=== PATIENT | female | born 1945 | race Caucasian/White ===

== ENCOUNTER 2016-10-23 11:19 | Outpatient (CLI) | payer MEDICARE, MEDICAID ==
[~2016-10-23 11:19] MED LIST: IRON SUCROSE COMPLEX 300 MG in NORMAL SALINE 250 ML IV PRN
[2016-10-23 12:06] VITALS: BP 126/106
== END 2016-10-23 14:42 | disposition home or self-care (01) ==
LOC: II 11:19 → 5TH 12:32 → II 14:42
PROVIDERS: ATTEND Internal Medicine Nephrology
PROC: 3E033GC Introduction of Other Therapeutic Substance into Peripheral Vein, Percutaneous Approach (ICD-10-PCS; principal; 2016-10-23)
DX: D50.9 Iron deficiency anemia, unspecified (principal); N18.9 Chronic kidney disease, unspecified; D63.1 Anemia in chronic kidney disease
CPT/HCPCS: 96365; 96366; J1756; J7050

== ENCOUNTER 2016-10-30 10:02 | Outpatient (CLI) | payer MEDICARE, MEDICAID ==
[2016-10-30] MEDS ORDERED: IRON SUCROSE COMPLEX 300 MG in NORMAL SALINE 250 ML IV PRN (10:25)
[2016-10-30 10:32] VITALS: BP 153/60
== END 2016-10-30 12:16 | disposition home or self-care (01) ==
LOC: II 10:02 → 5TH 10:15 → II 12:16
PROVIDERS: ATTEND Internal Medicine Nephrology
PROC: 3E033GC Introduction of Other Therapeutic Substance into Peripheral Vein, Percutaneous Approach (ICD-10-PCS; principal; 2016-10-30)
DX: N18.9 Chronic kidney disease, unspecified (principal); D63.1 Anemia in chronic kidney disease; D50.9 Iron deficiency anemia, unspecified
CPT/HCPCS: 96365; 96366; J1756; J7050

== ENCOUNTER 2017-01-15 09:04 | Outpatient (CLI) | payer MEDICARE, MEDICAID ==
[2017-01-15 10:12] VITALS: BP 154/77
== END 2017-01-15 12:06 | disposition home or self-care (01) ==
LOC: II 09:04 → 5TH 09:08 → II 12:06
PROVIDERS: ATTEND Internal Medicine Nephrology
PROC: 3E033GC Introduction of Other Therapeutic Substance into Peripheral Vein, Percutaneous Approach (ICD-10-PCS; principal; 2017-01-15)
DX: D56.9 Thalassemia, unspecified (principal); D63.1 Anemia in chronic kidney disease; N18.9 Chronic kidney disease, unspecified
CPT/HCPCS: 96365; 96366; J1756; J7050; 96367

== ENCOUNTER 2017-01-29 09:05 | Outpatient (CLI) | payer MEDICARE, MEDICAID ==
[2017-01-29 10:44] VITALS: BP 147/72
== END 2017-01-29 10:55 | disposition home or self-care (01) ==
LOC: II 09:05 → 5TH 09:07 → II 10:55
PROVIDERS: ATTEND Internal Medicine Nephrology
PROC: 3E033GC Introduction of Other Therapeutic Substance into Peripheral Vein, Percutaneous Approach (ICD-10-PCS; principal; 2017-01-29)
DX: D50.9 Iron deficiency anemia, unspecified (principal); N18.9 Chronic kidney disease, unspecified; D63.1 Anemia in chronic kidney disease
CPT/HCPCS: 96365; 96366; J1756; J7050

== ENCOUNTER 2017-03-12 09:13 | Outpatient (CLI) | payer MEDICARE, MEDICAID ==
[2017-03-12] MEDS ORDERED: IRON SUCROSE COMPLEX 300 MG in NORMAL SALINE 250 ML IV PRN (09:46)
[2017-03-12 10:37] VITALS: BP 152/94
== END 2017-03-12 11:54 | disposition home or self-care (01) ==
LOC: II 09:13 → 5TH 09:26 → II 11:54
PROVIDERS: ATTEND Internal Medicine Nephrology
PROC: 3E033GC Introduction of Other Therapeutic Substance into Peripheral Vein, Percutaneous Approach (ICD-10-PCS; principal; 2017-03-12)
DX: N18.9 Chronic kidney disease, unspecified (principal); D63.1 Anemia in chronic kidney disease; D50.9 Iron deficiency anemia, unspecified
CPT/HCPCS: 96365; 96366; J1756; J7050

== ENCOUNTER 2017-09-03 02:09 | Emergency (ER) | payer MEDICARE, MEDICAID ==
--- NOTE | 2017-09-03 04:07 | RADIOLOGY REPORT (SQ) ---
EXAM DESCRIPTION: RIBS LEFT W/PA CHEST CLINICAL HISTORY: 72 years, Female, fall COMPARISON: None. NUMBER OF VIEWS: 4. TECHNIQUE: AP and obliques. LIMITATIONS: None. FINDINGS: Moderate lung volume, clear parenchyma, normal cardiac silhouette size, atherosclerosis, and mild osteoarthritis. No evidence of significant displaced rib fracture. No pneumothorax. IMPRESSION: No acute cardiopulmonary findings. No displaced rib fracture. No pneumothorax. 2010 [employer]- All Rights Reserved
--- NOTE | 2017-09-03 06:03 | ER Document Report ---
ED General - General Chief Complaint: Fall Stated Complaint: FALL,RIB PAIN Notes: 72-year-old female presents with a fall getting on her bed approximately 5 hours ago. She was going take a nap and she slipped with her foot tripping on something. She hit her left back/flank on a piece of furniture. No head impact , loss of consciousness. Denies headache neck pain numbness or tingling. No shortness of breath or abdominal pain or nausea or vomiting. No blood thinners. Has pain and bruising at the site of impact only. Her granddaughter says that she was confused at the time but is now back to normal mental status. No urinary symptoms. History of fall 1 week ago. TRAVEL OUTSIDE OF THE [place] IN LAST 30 DAYS: No - Related Data Allergies/Adverse Reactions: allopurinol [Allopurinol] Allergy (Intermediate, Verified 12/23/13 03:17) rash atorvastatin calcium [From Lipitor] Adverse Reaction (Intermediate, Verified 03:17) elevated enzymes codeine [Codeine] Adverse Reaction (Mild, Verified 12/23/13 03:17) Nausea Past Medical History - Social History Smoking Status: Never Smoker Family History: Other - KIDNEY DIS. Patient has suicidal ideation: No Patient has homicidal ideation: No - Past Medical History Cardiac Medical History: Reports: Hx Hypertension Denies: Hx Coronary Artery Disease, Hx Heart Attack Pulmonary Medical History: Reports: Hx Pneumonia Denies: Hx Asthma, Hx Bronchitis, Hx COPD Neurological Medical History: Denies: Hx Cerebrovascular Accident, Hx Seizures Endocrine Medical History: Reports: Hx Diabetes Mellitus Type 2 Renal/ Medical History: Reports: Hx Kidney Stones. Denies: Hx Peritoneal Dialysis Musculoskeltal Medical History: Denies Hx Arthritis Past Surgical History: Reports: Hx Appendectomy, Hx Gynecologic Surgery - cyst removed from right ovary, Hx Kidney (Renal Surgery) - stone removed - Immunizations Hx Diphtheria, Pertussis, Tetanus Vaccination: Yes Hx Pneumococcal Vaccination: 07/31/14 Review of Systems - Review of Systems Notes: REVIEW OF SYSTEMS GEN: Denies fever, chills, weight loss ENT: Denies sore throat, nasal discharge, ear pain EYES: Denies blurry vision, eye pain, discharge CV: Denies chest pain, palpitations, edema RESP: Denies cough, shortness of breath, wheezing GI: Denies abdominal pain, nausea, vomiting, diarrhea flank pain on the left. MSK: Denies joint pain/swelling, edema, SKIN: Denies rash, skin lesions LYMPH: Denies swollen glands/lymph nodes NEURO: Denies headache, focal weakness or numbness, dizziness. Confusion resolved per granddaughter. PSYCH: Denies depression, suicidal or homicidal ideation PHYSICAL EXAMINATION General: No acute distress, well-nourished Head: Atraumatic, normocephalic ENT: Mouth normal, oropharynx moist, no exudates or tonsillar enlargement Eyes: Conjunctiva normal, pupils equal, lids normal Neck: No JVD, supple, no guarding CVS: Normal rate, regular rhythm, no murmurs Resp: No resp distress, equal and normal breath sounds bilaterally. No deformities or chest tenderness. GI: Nondistended, soft, no tenderness to palpation, no rebound or guarding Ext: No deformities, no edema, normal range of motion in upper and lower ext Back: No CVA or midline TTP. No step-offs. 12 x 12 cm contusion to the left paraspinous area/flank with minimal tenderness. Skin: No rash, warm Lymphatic: No lymphadeopathy noted Neuro: Awake, alert. Face symmetric. GCS 15. Physical Exam - Vital signs Vitals: Temp Pulse Resp BP Pulse Ox 98.1 F 65 18 173/95 H 98 09/03/17 02:13 09/03/17 02:13 09/03/17 02:13 09/03/17 02:13 09/03/17 02:13 Course - Re-evaluation Re-evalutation: 09/03/17 06:35 Patient presents with contusion to back flank after fall about 5 hours ago. Her vitals are normal she has no remote tenderness of the abdomen and back which I think makes solid organ or retroperitoneal injury less likely. No evidence for spinal trauma. She is no longer confused and has no signs of head trauma so I think head and neck imaging is also not necessary today. Rib x-ray which was ordered before my arrival shows no fractures. Clinically she has no significant pulmonary trauma either. I think she is stable for discharge home with conservative management. I did talk to the daughter about fall prevention in the home and follow-up with primary care doctor. I have discussed with the patient there likely diagnosis, aftercare plan, follow-up plans and my usual and customary return precautions. They verbalized understanding of this. - Vital Signs Vital signs: Temp Pulse Resp BP Pulse Ox 98.1 F 65 18 173/95 H 98 09/03/17 02:13 09/03/17 02:13 09/03/17 02:13 09/03/17 02:13 09/03/17 02:13 - Diagnostic Test Radiology reviewed: Image reviewed, Reports reviewed Discharge - Discharge Clinical Impression: Fall from standing Qualifiers: Encounter type: initial encounter Qualified Code(s): W19.XXXA - Unspecified fall, initial encounter Disposition: HOME, SELF-CARE Instructions: Contusion ([facility]), Rib Contusion ([facility]) Additional Instructions: Please touch your regular doctor within the next week about reducing falls in the home. Please return to the emergency room if he develops shortness of breath worsening pain nausea vomiting or confusion.
[2017-09-03] MEDS ORDERED: IBUPROFEN 600 MG TABLET PO ONE (06:16)
[2017-09-03 07:12] VITALS: BP 169/84
== END 2017-09-03 06:20 | disposition home or self-care (01) ==
LOC: ER 02:09
DX: S30.1XXA Contusion of abdominal wall, initial encounter (principal); R07.81 Pleurodynia; W01.0XXA Fall on same level from slipping, tripping and stumbling without subsequent striking against object, initial encounter; Y93.89 Activity, other specified; Z88.8 Allergy status to other drugs, medicaments and biological substances; I10 Essential (primary) hypertension; E11.9 Type 2 diabetes mellitus without complications
CPT/HCPCS: 99283; 71101; A9270

== ENCOUNTER 2018-01-07 08:54 | Outpatient (CLI) | payer MEDICARE, MEDICAID ==
[2018-01-07] MEDS ORDERED: IRON SUCROSE COMPLEX 300 MG in NORMAL SALINE 250 ML IV PRN (09:23)
[2018-01-07 09:37] VITALS: BP 189/82
== END 2018-01-07 11:52 | disposition home or self-care (01) ==
LOC: II 08:54 → 5TH 09:08 → II 11:52
PROVIDERS: ATTEND Family Medicine
PROC: 3E033GC Introduction of Other Therapeutic Substance into Peripheral Vein, Percutaneous Approach (ICD-10-PCS; principal; 2018-01-07)
DX: D50.9 Iron deficiency anemia, unspecified (principal); N18.9 Chronic kidney disease, unspecified; D63.1 Anemia in chronic kidney disease
CPT/HCPCS: 96365; J1756; J7050

== ENCOUNTER 2018-04-15 08:59 | Outpatient (CLI) | payer MEDICARE, MEDICAID ==
[2018-04-15 10:57] VITALS: BP 157/99
== END 2018-04-15 12:40 | disposition home or self-care (01) ==
LOC: II 08:59 → 5TH 09:37 → II 12:40
PROVIDERS: ATTEND Family Medicine
PROC: 3E033GC Introduction of Other Therapeutic Substance into Peripheral Vein, Percutaneous Approach (ICD-10-PCS; principal; 2018-04-15)
DX: D50.9 Iron deficiency anemia, unspecified (principal); N18.9 Chronic kidney disease, unspecified; D63.1 Anemia in chronic kidney disease
CPT/HCPCS: 96367; J1756; J7050; 96365; 96366

== ENCOUNTER 2018-06-03 09:00 | Outpatient (CLI) | payer MEDICARE, MEDICAID ==
[2018-06-03 09:36] VITALS: BP 177/82
== END 2018-06-03 12:39 | disposition home or self-care (01) ==
LOC: II 09:00 → 5TH 09:05 → II 12:39
PROVIDERS: ATTEND Internal Medicine Cardiovascular Disease
PROC: 3E033GC Introduction of Other Therapeutic Substance into Peripheral Vein, Percutaneous Approach (ICD-10-PCS; principal; 2018-06-03)
DX: D50.9 Iron deficiency anemia, unspecified (principal); D63.1 Anemia in chronic kidney disease
CPT/HCPCS: 96365; 96366; J1756; J7050

== ENCOUNTER 2018-08-12 08:47 | Outpatient (CLI) | payer MEDICARE, MEDICAID ==
[2018-08-12 11:13] VITALS: BP 158/84
== END 2018-08-12 11:18 | disposition home or self-care (01) ==
LOC: II 08:47 → 5TH 08:58 → II 11:18
PROVIDERS: ATTEND Internal Medicine Nephrology
PROC: 3E033GC Introduction of Other Therapeutic Substance into Peripheral Vein, Percutaneous Approach (ICD-10-PCS; principal; 2018-08-12)
DX: D50.9 Iron deficiency anemia, unspecified (principal); D63.1 Anemia in chronic kidney disease
CPT/HCPCS: 96365; 96366; J1756; J7050

== ENCOUNTER 2018-09-10 18:23 | Emergency (ER) | payer MEDICARE, MEDICAID ==
--- NOTE | 2018-09-10 20:15 | ER Document Report ---
ED Medical Screen (RME) - General Chief Complaint: Breathing Difficulty Stated Complaint: DYSPNEA Time Seen by Provider: 09/10/18 20:07 Notes: 73-year-old female comes emergency department for chief complaint of worsening difficulty breathing for the past 4 days, she does report intermittently productive cough, she does report pain along her ribs on both sides. Denies fever. Shortness of breath became worse today, came by EMS, given DuoNeb and placed on oxygen, given Solu-Medrol. States on oxygen she feels much improved. Denies history of smoking, COPD, asthma. Past medical history includes chronic kidney disease, TIA, and she states she is taking a diuretic TRAVEL OUTSIDE OF THE [place] IN LAST 30 DAYS: No - Related Data Allergies/Adverse Reactions: allopurinol [Allopurinol] Allergy (Intermediate, Verified 12/23/13 03:17) rash atorvastatin calcium [From Lipitor] Adverse Reaction (Intermediate, Verified 03:17) elevated enzymes codeine [Codeine] Adverse Reaction (Mild, Verified 12/23/13 03:17) Nausea Past Medical History - Past Medical History Cardiac Medical History: Reports: Hx Hypertension Denies: Hx Coronary Artery Disease, Hx Heart Attack Pulmonary Medical History: Reports: Hx Pneumonia Denies: Hx Asthma, Hx Bronchitis, Hx COPD Neurological Medical History: Denies: Hx Cerebrovascular Accident, Hx Seizures Endocrine Medical History: Reports: Hx Diabetes Mellitus Type 2 Renal/ Medical History: Reports: Hx Kidney Stones. Denies: Hx Peritoneal Dialysis Musculoskeltal Medical History: Denies Hx Arthritis Past Surgical History: Reports: Hx Appendectomy, Hx Gynecologic Surgery - cyst removed from right ovary, Hx Kidney (Renal Surgery) - stone removed - Immunizations Hx Diphtheria, Pertussis, Tetanus Vaccination: Yes Physical Exam - Vital signs Vitals: Temp Pulse Resp BP Pulse Ox 98.5 F 60 20 189/82 H 96 09/10/18 18:51 09/10/18 18:51 09/10/18 18:51 09/10/18 18:51 09/10/18 18:51 - Respiratory Respiratory status: No respiratory distress. No: Respiratory distress, Tachypnea Breath sounds: Wheezing Course - Re-evaluation Re-evalutation: Patient is hypertensive but she does not have rails on exam, on exam she has expiratory wheezes, reports cough for 4 days, no fever. Workup pending. No respiratory distress in triage. No hypoxia at this time. I have greeted and performed a rapid initial assessment of this patient. A comprehensive ED assessment and evaluation of the patient, analysis of test results and completion of the medical decision making process will be conducted by additional ED providers. - Vital Signs Vital signs: Temp Pulse Resp BP Pulse Ox 98.5 F 60 20 189/82 H 96 09/10/18 18:51 09/10/18 18:51 09/10/18 18:51 09/10/18 18:51 09/10/18 18:51
[2018-09-10] MEDS ORDERED: IPRATROPIUM/ALBUTEROL 0.5-2.5 MG/3 ML AMPUL NEB ONE ×2 (20:21→22:37)
--- NOTE | 2018-09-10 20:41 | RADIOLOGY REPORT (SQ) ---
EXAM DESCRIPTION: CHEST SINGLE VIEW COMPLETED DATE/TIME: 09/10/2018 8:33 pm REASON FOR STUDY: shortness of breath COMPARISON: 12/22/2013. EXAM PARAMETERS: NUMBER OF VIEWS: One view. TECHNIQUE: Single frontal radiographic view of the chest acquired. RADIATION DOSE: NA LIMITATIONS: None. FINDINGS: LUNGS AND PLEURA: No opacities, masses or pneumothorax. No pleural effusion. MEDIASTINUM AND HILAR STRUCTURES: No masses. Contour normal. HEART AND VASCULAR STRUCTURES: Heart normal in size. Normal vasculature. BONES: No acute findings. HARDWARE: None in the chest. OTHER: No other significant finding. IMPRESSION: NO ACUTE RADIOGRAPHIC FINDING IN THE CHEST. TECHNICAL DOCUMENTATION: JOB ID: [id number] [employer]- All Rights Reserved Reading location - IP/workstation name: [email or web address]
--- NOTE | 2018-09-10 21:19 | EKG REPORT ---
SEVERITY:- ABNORMAL ECG - ATRIAL FIBRILLATION VENTRICULAR PREMATURE COMPLEX BORDERLINE LEFT AXIS DEVIATION BORDERLINE PROLONGED QT INTERVAL : Confirmed by: Kaitlin Bruce MD 10-Sep-2018 21:18:23
[2018-09-10 21:21] LABS: ABSOLUTE LYMPHOCYTES (AUTO) 0.5 10^3/uL (0.5-4.7); ABSOLUTE MONOCYTES (AUTO) 0.2 10^3/uL (0.1-1.4); ABSOLUTE NEUT (AUTO) 7.3 10^3/uL (1.7-8.2); BASOPHILS % (AUTO) 0.4 % (0-2); EOSINOPHILS % (AUTO) 0.6 % (0-6); HEMATOCRIT 25.3 % (36.0-47.0); HEMOGLOBIN 8.6 g/dL (12.0-15.5); LYMPHOCYTES % (AUTO) 6.5 % (13-45); MEAN CORPUSCULAR HEMOGLOBIN 34.4 pg (27.0-33.4); MEAN CORPUSCULAR HGB CONC 34.1 g/dL (32.0-36.0); MEAN CORPUSCULAR VOLUME 101 fl (80-97); MONOCYTES % (AUTO) 1.9 % (3-13); PLATELET COUNT 155 10^3/uL (150-450); RED BLOOD COUNT 2.51 10^6/uL (3.72-5.28); RED CELL DISTRIBUTION WIDTH 13.4 % (11.5-14.0); SEGMENTED NEUTROPHILS % (AUTO) 90.6 % (42-78); TOTAL CELLS COUNTED % (AUTO) 100 %; VENOUS BLOOD HCO3 23.9 mmol/L (20-32); VENOUS BLOOD PCO2 45.6 mmHg (35-63); VENOUS BLOOD PH 7.34 (7.30-7.42)
[2018-09-10 21:41] LABS: ALANINE AMINOTRANSFERASE 23 U/L (9-52); ALBUMIN 3.7 g/dL (3.5-5.0); ALKALINE PHOSPHATASE 76 U/L (38-126); ANION GAP 12 (5-19); ASPARTATE AMINO TRANSFERASE 23 U/L (14-36); BILIRUBIN,DIRECT 0.1 mg/dL (0.0-0.4); BILIRUBIN,TOTAL 0.3 mg/dL (0.2-1.3); BLOOD UREA NITROGEN 38 mg/dL (7-20); CALCIUM 9.4 mg/dL (8.4-10.2); CARBON DIOXIDE 23 mmol/L (22-30); CHLORIDE 112 mmol/L (98-107); GLUCOSE 155 mg/dL (75-110); POTASSIUM 4.8 mmol/L (3.6-5.0); SODIUM 146.5 mmol/L (137-145); TOTAL PROTEIN 6.6 g/dL (6.3-8.2)
--- NOTE | 2018-09-10 23:40 | ER Document Report ---
ED General - General Chief Complaint: Breathing Difficulty Stated Complaint: DIFFICULTY BREATHING Time Seen by Provider: 09/10/18 20:07 Notes: Very pleasant 73-year-old female with HTN and CKD brought in by EMS for shortness of breath that started approximately 4 days ago but became acutely worse this evening. She also has associated bilateral rib pain and a productive cough. She denies fever, endorses shortness of breath, denies headache, denies chest pain, denies nausea, denies vomiting. MS gave her Solu- Medrol 125 mg 1 time and 1 DuoNeb. In triage in the ED she received a second DuoNeb treatment. Patient has no history of asthma or airway disease. Patient has never smoked. TRAVEL OUTSIDE OF THE [place] IN LAST 30 DAYS: No - HPI Patient complains to provider of: shortness of breath - Related Data Allergies/Adverse Reactions: allopurinol [Allopurinol] Allergy (Intermediate, Verified 12/23/13 03:17) rash atorvastatin calcium [From Lipitor] Adverse Reaction (Intermediate, Verified 03:17) elevated enzymes codeine [Codeine] Adverse Reaction (Mild, Verified 12/23/13 03:17) Nausea Past Medical History - General Information source: Patient - Social History Smoking Status: Never Smoker Frequency of alcohol use: None Drug Abuse: None Family History: Other - KIDNEY DIS. Patient has suicidal ideation: No Patient has homicidal ideation: No - Past Medical History Cardiac Medical History: Reports: Hx Hypertension Denies: Hx Coronary Artery Disease, Hx Heart Attack Pulmonary Medical History: Reports: Hx Pneumonia Denies: Hx Asthma, Hx Bronchitis, Hx COPD Neurological Medical History: Denies: Hx Cerebrovascular Accident, Hx Seizures Endocrine Medical History: Reports: Hx Diabetes Mellitus Type 2 Renal/ Medical History: Reports: Hx End Stage Renal Disease - not on dialysis , Hx Kidney Stones. Denies: Hx Peritoneal Dialysis Musculoskeletal Medical History: Denies Hx Arthritis Past Surgical History: Reports: Hx Appendectomy, Hx Gynecologic Surgery - cyst removed from right ovary, Hx Hysterectomy, Hx Kidney (Renal Surgery) - stone removed - Immunizations Hx Diphtheria, Pertussis, Tetanus Vaccination: Yes Hx Pneumococcal Vaccination: 07/31/14 Review of Systems - Review of Systems Constitutional: See HPI EENT: See HPI Cardiovascular: See HPI Respiratory: See HPI Gastrointestinal: See HPI Genitourinary: No symptoms reported Female Genitourinary: No symptoms reported Musculoskeletal: No symptoms reported Skin: No symptoms reported Hematologic/Lymphatic: No symptoms reported Neurological/Psychological: No symptoms reported Physical Exam - Vital signs Vitals: Temp Pulse Resp BP Pulse Ox 98.5 F 60 20 189/82 H 96 09/10/18 18:51 09/10/18 18:51 09/10/18 18:51 09/10/18 18:51 09/10/18 18:51 - Notes Notes: Reviewed vital signs and nursing note as charted by RN. CONSTITUTIONAL: Well-appearing, well-nourished, acting appropriately for age HEAD: Normocephalic, atraumatic, no swelling EYES: PERRL, Conjunctivae clear, no drainage, EOMI, no scleral icterus ENT: External ears without lesions, External auditory canal is patent, airway patent, mucous membranes pink and moist NECK: Supple, no cervical lymphadenopathy, no masses CARD: Regular rate and rhythm, no murmurs, no rubs, no gallops, capillary refill < 2 seconds, symmetric pulses RESP: Expiratory wheezing heard in all [place], no rales, no rhonchi. Respiratory rate and effort are normal, normal chest excursion. No respiratory distress, no retractions, no stridor, no nasal flaring, no accessory muscle use. ABD/GI: Normal bowel sounds, non-distended, soft, non-tender, no rebound, no guarding, no palpable organomegaly EXT: Normal ROM in all joints, non-tender to palpation, no effusions, no edema SKIN: Normal color for age and race, warm, dry, good turgor, no acute lesions noted NEURO: No facial asymmetry, moves all extremities equally, motor and sensory function intact Course - Re-evaluation Re-evalutation: 09/10/18 23:41 Pleasant 73-year-old female presents with shortness of breath for the last 4 days. Solu-Medrol 125 mg x1 given, DuoNeb given on the EMS truck, DuoNeb given in triage, she is receiving a third DuoNeb now. Chest x-ray showed no evidence of infiltrate or consolidation. Patient is afebrile. 09/10/18 23:43 09/10/18 23:50 Nurse came and told me that patient is hypertensive at 210/65. She also said the patient has not taken her evening antihypertensives. I ordered her usual home dose of losartan 100 mg and carvedilol 25 mg. Patient received third DuoNeb. Improved breath sounds on right side with minimal end expiratory wheezing but still with expiratory wheezing on left side. 09/10/18 23:51 09/11/18 00:44 Evaluated patient she still has end expiratory wheezing. We will ambulate her on pulse ox to see if she tolerates it. 09/11/18 01:06 Ambulated patient and she became dyspneic, tachypneic and tachycardic to 150 after only walking a short distance we returned to the bed. She did return to her baseline. Ordered magnesium 2 g IV and ordered an albuterol nebulizer one time. 09/11/18 04:47 Albuterol nebulizer given and half of the magnesium given. I reevaluated the patient with interval improvement in lung sounds. I did not hear any wheezing on expiration. Will reevaluate after the second bag of magnesium goes in. 09/11/18 05:22 Reevaluated patient she was sitting comfortably in the bed in no acute distress or any respiratory distress. Lung sounds were clear to auscultation in all [place]. No evidence of any end expiratory wheezing. SPO2 was 97% on room air. Patient was not tachycardic. I discussed with patient her concerns and told her that she is stable for discharge with close follow-up with her primary care doctor either this afternoon or first thing tomorrow morning. Patient agreed and is comfortable with the plan. - Vital Signs Vital signs: Temp Pulse Resp BP Pulse Ox 98.5 F 60 20 189/82 H 96 09/10/18 18:51 09/10/18 18:51 09/10/18 18:51 09/10/18 18:51 09/10/18 18:51 - Laboratory Result Diagrams: 09/10/18 21:09 09/10/18 21:09 Laboratory results interpreted by me: 09/10/18 09/10/18 21:09 21:09 RBC 2.51 L Hgb 8.6 L Hct 25.3 L MCV 101 H MCH 34.4 H Seg Neutrophils % 90.6 H Lymphocytes % 6.5 L Monocytes % 1.9 L Sodium 146.5 H Chloride 112 H BUN 38 H Creatinine 3.73 H Est GFR ( Amer) 14 L Est GFR (Non-Af Amer) 12 L Glucose 155 H Discharge - Discharge Clinical Impression: Bronchitis, Shortness of breath on exertion, Wheezing Condition: Stable Disposition: HOME, SELF-CARE Additional Instructions: Bronchitis You have acute bronchitis. This disease is an infection or inflammation of the air passageways in your lungs. Symptoms usually include cough, low grade fever, shortness of breath, and wheezing. The cough usually persists for a couple of weeks. Most cases of bronchitis get better without antibiotics. We prescribe antibiotics when we believe bacteria are damaging your airways, or if there's high risk the bronchitis will worsen into pneumonia. Increase your fluid intake. A cool mist humidifier may make your lungs more comfortable. An expectorant (cough medicine that loosens phlegm) can help. Recovery from bronchitis can be somewhat slow, but you should see improvement within a day or two. Repeated episodes of bronchitis may result in lung damage -- for example, chronic bronchitis, recurrent pneumonias, or emphysema. Please follow-up with your primary care physician either today or tomorrow. If you develop increasing fever, shortness of breath, chest pain, bloody sputum, or otherwise worsen prior to see during your primary care doctor please return to the emergency department.
[2018-09-10] MEDS ORDERED: CARVEDILOL 12.5 MG TABLET PO ONE (23:50)
[2018-09-10] MEDS ORDERED: LOSARTAN POTASSIUM 50 MG TABLET PO ONE (23:50)
[2018-09-11] MEDS ORDERED: ALBUTEROL SULFATE 0.083% NEB 2.5 MG/3 ML AMPUL NEB ONE (03:22)
[2018-09-11] MEDS: MAGNESIUM SULFATE/D5W 1 GM/100 ML RTUPB IV SCH ×2 (03:59→04:31)
[2018-09-11] MEDS ORDERED: ALBUTEROL SULFATE HFA (90 MCG/PUFF) 8 GM MDI (1 MDI/ER DISP) IH ONE (06:00)
[2018-09-11 07:50] VITALS: BP 183/73
== END 2018-09-11 07:50 | disposition home or self-care (01) ==
LOC: ER 18:23
DX: J40 Bronchitis, not specified as acute or chronic (principal); R06.02 Shortness of breath; R06.2 Wheezing; R07.81 Pleurodynia; R05 Cough; I10 Essential (primary) hypertension; E11.9 Type 2 diabetes mellitus without complications
CPT/HCPCS: 93005; 94640 ×2; 99285; 96365; 36415; 85025; 80053; 84484; 82803; 71045; 93010; A9270 ×4; J3475; J3490; J7620

== ENCOUNTER 2018-09-12 09:28 | Emergency (ER) | payer MEDICARE, MEDICAID ==
--- NOTE | 2018-09-12 10:04 | EKG REPORT ---
SEVERITY:- ABNORMAL ECG - SINUS TACHYCARDIA REPOL ABNRM SUGGESTS ISCHEMIA, DIFFUSE LEADS BORDERLINE PROLONGED QT INTERVAL : Confirmed by: Kaitlin Bruce MD 12-Sep-2018 10:02:56
[2018-09-12] MEDS ORDERED: MORPHINE SULFATE 10 MG/ML INJ IV ONE ×2 (10:15→16:34)
--- NOTE | 2018-09-12 10:22 | ER Document Report ---
ED General - General Chief Complaint: Respiratory Distress Stated Complaint: RESPIRATORY DISTRESS Time Seen by Provider: 09/12/18 10:03 Information source: Patient Notes: Patient is a 73-year-old female with past medical history as recorded in 5 days ago started to develop some nasal congestion and coughing. She was seen and evaluated here 2 days ago with an x-ray of the chest as well as laboratory values. Patient was found to be wheezing and provided steroids, magnesium, do nebulizers. Patient states that the wheezing is much improved. She still states a mild cough. She denies any fevers, vomiting, or diarrhea. She denies any chest or upper back pain. Patient states she was diagnosed with a nontraumatic fracture of the lumbar vertebrae in April. 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 Patient states secondary to the coughing and laying flat her lower back has increased in pain. Patient has a history as recorded including chronic renal disease. Patient is still taking the steroids and took an albuterol inhaler prior to arrival. She denies any dysuria, incontinence, weakness of the legs. TRAVEL OUTSIDE OF THE [place] IN LAST 30 DAYS: No - HPI Onset: Other - See above Onset/Duration: Gradual Quality of pain: Dull Severity: Mild Pain Level: 2 Associated symptoms: Other - See above Exacerbated by: Movement Relieved by: Remaining still Similar symptoms previously: Yes Recently seen / treated by doctor: Yes - Related Data Allergies/Adverse Reactions: allopurinol [Allopurinol] Allergy (Intermediate, Verified 12/23/13 03:17) rash atorvastatin calcium [From Lipitor] Adverse Reaction (Intermediate, Verified 03:17) elevated enzymes codeine [Codeine] Adverse Reaction (Mild, Verified 12/23/13 03:17) Nausea Past Medical History - Social History Smoking Status: Unknown if Ever Smoked Family History: Other - KIDNEY DIS. - Past Medical History Cardiac Medical History: Reports: Hx Hypertension Denies: Hx Coronary Artery Disease, Hx Heart Attack Pulmonary Medical History: Reports: Hx Pneumonia Denies: Hx Asthma, Hx Bronchitis, Hx COPD Neurological Medical History: Denies: Hx Cerebrovascular Accident, Hx Seizures Endocrine Medical History: Reports: Hx Diabetes Mellitus Type 2 Renal/ Medical History: Reports: Hx End Stage Renal Disease - not on dialysis , Hx Kidney Stones. Denies: Hx Peritoneal Dialysis Musculoskeletal Medical History: Denies Hx Arthritis Past Surgical History: Reports: Hx Appendectomy, Hx Gynecologic Surgery - cyst removed from right ovary, Hx Hysterectomy, Hx Kidney (Renal Surgery) - stone removed - Immunizations Hx Diphtheria, Pertussis, Tetanus Vaccination: Yes Hx Pneumococcal Vaccination: 07/31/14 Review of Systems - Review of Systems Constitutional: denies: Fever EENT: Nose congestion. denies: Eye discharge, Nose discharge Cardiovascular: denies: Chest pain, Palpitations Respiratory: Cough. denies: Short of breath Gastrointestinal: denies: Vomiting Genitourinary: denies: Dysuria Musculoskeletal: denies: Leg swelling Skin: Other - no hives. denies: Rash Neurological/Psychological: Other - no slurred speech -: Yes All other systems reviewed and negative Physical Exam - Vital signs Vitals: BP 162/105 H 09/12/18 09:33 Interpretation: Normal Notes: Reviewed vital signs and nursing note as charted by RN. CONSTITUTIONAL: Alert and oriented and responds appropriately to questions. Well -appearing; well-nourished HEAD: Normocephalic; atraumatic EYES: PERRL; Conjunctivae clear, sclerae non-icteric ENT: Normal nose; bilateral nonpurulent nasal rhinorrhea; moist mucous membranes ; pharynx without lesions noted NECK: Supple without meningismus; non-tender; no cervical lymphadenopathy, no masses CARD: Tachycardic and regular; no murmurs; symmetric distal pulses RESP: Normal chest excursion without splinting or tachypnea; breath sounds clear and equal bilaterally; no wheezes, no rhonchi, no rales ABD/GI: Normal bowel sounds; non-distended; soft, non-tender; no palpable organomegaly or masses BACK: The back appears normal with some tenderness to the midline lumbar spine with no swelling, erythema, induration, or step-offs appreciated EXT: Normal ROM in all joints; non-tender to palpation; no edema SKIN: No acute lesions noted NEURO: CN 2-12 intact; 5/5 bilateral upper and lower extremity strength with sensation intact to light touch PSYCH: The patient's mood and manner are appropriate. Grooming and personal hygiene are appropriate. - HEENT Head: Atraumatic Eyes: Normal - Respiratory Respiratory status: No respiratory distress - Cardiovascular Rhythm: Regular Heart sounds: Normal auscultation Murmur: No - Extremities General lower extremity: Cecile's sign Course - Re-evaluation Re-evalutation: 09/12/18 10:22 Given the history and physical examination with the tachycardia as recorded, with the elevated blood pressure, with the patient in obvious acute pain, with no fevers, back erythema or induration, step-offs, with the patient stating similar pain since April, I will obtain basic labs, provide pain medications, and reassess the patient's lung examination and heart rate. 500 bolus fluid has been provided. 09/12/18 10:26 Heart rate 129, sinus tachycardia, normal axis, mild ST depressions in leads II , V3 through V6. 09/12/18 11:00 Patient states she did not take her extended relief 180 mg of Cartia last night or her carvediol 25mg tablet this am. Patient states she does have a history of intermittent atrial fibrillation. 09/12/18 11:27 Laboratory values from the and today show what appears to be anemia and quite severe chronic kidney disease. The last laboratory values showing a hemoglobin around 11 and a creatinine about 1.71 2013. I do not have any more recent laboratory values. Patient's primary care physician, Dr. Turner at [phone] is currently closed. Patient still denies any chest pain. Troponin 2 days ago as recorded. Aspirin has already been given. Second troponin will be sent at 1 PM. I was able to call and speak to the patient's informatics physician, Dr. Magaña, after attempting to call the primary care physician. She was able to relay to me that the patient's hemoglobin on August 05 was 9.7 with a creatinine of 4.2. Patient is not on any anticoagulants otherwise. I have sent a PT/INR and PTT. I will obtain an x-ray of the chest, bolus the patient with heparin, await the repeat troponin, and obtain a VQ scan secondary to the patient's creatinine. 09/12/18 14:41 Repeat troponin as recorded. Heparin has been provided. VQ scan is pending. 09/12/18 14:59 EKG shows a heart rate of 57, normal sinus rhythm with PACs and PVCs present, no ST elevation or depression 09/12/18 16:34 Patient still is very minimally Hemoccult positive with no gross blood. We will continue the heparin drip given the patient's rapidly increasing troponin. Given the shortness of breath possibly causing demand ischemia with an elevated troponin, with a hemoglobin of 7.9 with Hemoccult positive stool, I will provide a unit of packed red blood cells. Patient has consented understanding the risks and benefits. 09/12/18 16:50 VQ scan read as unremarkable for pulmonary embolism. Heart rate is currently 72. Blood pressure is stable. - Vital Signs Vital signs: Temp Pulse Resp BP Pulse Ox 98.0 F 18 173/62 H 94 09/12/18 10:00 09/12/18 16:19 09/12/18 16:19 09/12/18 16:19 - Laboratory Result Diagrams: 09/12/18 09:51 09/12/18 09:51 Laboratory results interpreted by me: 09/12/18 09/12/18 09:51 09:51 WBC 16.0 H RBC 2.35 L Hgb 7.9 L Hct 23.7 L MCV 101 H MCH 33.6 H Seg Neuts % (Manual) 92 H Lymphocytes % (Manual) 4 L Abs Neuts (Manual) 14.7 H Sodium 146.3 H Chloride 115 H BUN 55 H Creatinine 3.49 H Est GFR ( Amer) 15 L Est GFR (Non-Af Amer) 13 L Glucose 148 H Critical Care Note - Critical Care Note Total time excluding time spent on procedures (mins): 75 Discharge - Discharge Clinical Impression: SOB (shortness of breath), Acute blood loss anemia, NSTEMI (non-ST elevated myocardial infarction) Condition: Serious
[2018-09-12] MEDS ORDERED: NORMAL SALINE 1000 ML 1,000 ML IV ONE (10:25)
[2018-09-12 10:26] LABS: HEMATOCRIT 23.7 % (36.0-47.0); MEAN CORPUSCULAR HEMOGLOBIN 33.6 pg (27.0-33.4); MEAN CORPUSCULAR HGB CONC 33.4 g/dL (32.0-36.0); MEAN CORPUSCULAR VOLUME 101 fl (80-97); PLATELET COUNT 193 10^3/uL (150-450); RED BLOOD COUNT 2.35 10^6/uL (3.72-5.28)
[2018-09-12 10:30] LABS: ANION GAP 9 (5-19); BLOOD UREA NITROGEN 55 mg/dL (7-20); CALCIUM 9.3 mg/dL (8.4-10.2); CARBON DIOXIDE 22 mmol/L (22-30); CHLORIDE 115 mmol/L (98-107); GLUCOSE 148 mg/dL (75-110); POTASSIUM 4.7 mmol/L (3.6-5.0); SODIUM 146.3 mmol/L (137-145)
[2018-09-12 10:48] LABS: HEMOGLOBIN 7.9 g/dL (12.0-15.5)
[2018-09-12 10:55] LABS: ABSOLUTE LYMPHOCYTES# (MANUAL) 0.6 10^3/uL (0.5-4.7); ABSOLUTE MONOCYTES # (MANUAL) 0.6 10^3/uL (0.1-1.4); ABSOLUTE NEUTROPHILS# (MANUAL) 14.7 10^3/uL (1.7-8.2); BASOPHILS % (MANUAL) 0 % (0-2); EOSINOPHILS % (MANUAL) 0 % (0-6); LYMPHOCYTES % (MANUAL) 4 % (13-45); MONOCYTES % (MANUAL) 4 % (3-13); SEGMENTED NEUTROPHILS % (MAN) 92 % (42-78); TOTAL CELLS COUNTED 100
[2018-09-12 10:57] LABS: HYPOCHROMASIA 1+; POLYCHROMASIA SLIGHT
[2018-09-12 10:58] LABS: OVALOCYTES 1+; PLATELET CLUMPS PRESENT; POIKILOCYTOSIS 1+; TOXIC GRANULATION SLIGHT
[2018-09-12] MEDS ORDERED: CARVEDILOL 12.5 MG TABLET PO ONE (11:01)
[2018-09-12] MEDS ORDERED: DILTIAZEM HCL 180 MG CAPSULE.CR PO ONE (11:01)
[2018-09-12] MEDS ORDERED: ASPIRIN 325 MG TABLET PO ONE (13:09)
[2018-09-12] MEDS ORDERED: HEPARIN SOD (PORCINE) 1,000 UNIT/ML 10 ML VIAL IV ONE (13:38)
[2018-09-12] MEDS ORDERED: HEPARIN SODIUM,PORCINE/D5W 25,000 UNIT/250 ML RTUINJ IV PRN (13:38)
[2018-09-12 13:46] LABS: INTERNATIONAL RATION (INR) 1.08; PROTHROMBIN TIME 14.5 SEC (11.4-15.4)
[2018-09-12 13:47] LABS: PARTIAL THROMBOPLASTIN TIME 26.9 SEC (23.5-35.8)
--- NOTE | 2018-09-12 14:18 | RADIOLOGY REPORT (SQ) ---
EXAM DESCRIPTION: CHEST 2 VIEWS COMPLETED DATE/TIME: 09/12/2018 1:50 pm REASON FOR STUDY: 3, cough; elevated troponin today COMPARISON: 09/10/2018, 09/03/2017 EXAM PARAMETERS: NUMBER OF VIEWS: two views TECHNIQUE: Digital Frontal and Lateral radiographic views of the chest acquired. RADIATION DOSE: NA LIMITATIONS: none FINDINGS: LUNGS AND PLEURA: On lateral view, trace pleural fluid is present in the right and left po sterior costophrenic sulci. Few Анна lines at both bases, question mild interstitial edema. No fluffy alveolar infiltrate worrisome for pneumonia or pulmonary edema. No pneumothorax MEDIASTINUM AND HILAR STRUCTURES: No masses or contour abnormalities. HEART AND VASCULAR STRUCTURES: Stable marked cardiomegaly BONES: No acute findings. HARDWARE: None in the chest. OTHER: No other significant finding. IMPRESSION: Cardiomegaly and mild interstitial edema. Trace pleural fluid in the posterior costophr enic sulci TECHNICAL DOCUMENTATION: JOB ID: [id number] [employer]- All Rights Reserved Reading location - IP/workstation name: [email or web address]
--- NOTE | 2018-09-12 16:36 | RADIOLOGY REPORT (SQ) ---
EXAM DESCRIPTION: NM LUNG VENT/PERF SCAN COMPLETED DATE/TIME: 09/12/2018 4:13 pm REASON FOR STUDY: 3, sob/tachy/elevated troponin COMPARISON: Chest films 09/12/2018, 09/10/2018 PA chest and left rib films 09/03/2017 5.4 RADIONUCLIDE AND DOSE: 5.4 millicuries TC-99m MAA Intravenous 31.2 millicuries TC-99m DTPA Inhaled aerosol TECHNIQUE: Eight views of the lungs acquired post ventilation of DTPA aerosol. Eight matching views of the lungs acquired following injection of MAA. LIMITATIONS: None. FINDINGS: VENTILATION: Symmetric and homogeneous distribution of DTPA aerosol during ventilatory pha se. No significant areas of photopenia. PERFUSION: Perfusion images with normal homogenous activity and no wedge-shaped or segmental defects. No ventilation-perfusion mismatches. OTHER: No other significant finding. IMPRESSION: NORMAL VENTILATION-PERFUSION LUNG SCAN. NEGATIVE FOR PULMONARY EMBOLI. TECHNICAL DOCUMENTATION: JOB ID: [id number] [employer]- All Rights Reserved Reading location - IP/workstation name: [facility]
[2018-09-12] MEDS ORDERED: NORMAL SALINE 250 ML IV PRN ×2 (16:37)
[2018-09-12] MEDS ORDERED: HEPARIN SOD (PORCINE) 1,000 UNIT/ML 10 ML VIAL IV PRN (16:38)
[2018-09-12] MEDS ORDERED: MORPHINE SULFATE 10 MG/ML INJ IV PRN (21:35)
[2018-09-12 21:57] VITALS: BP 186/75
--- NOTE | 2018-09-13 07:52 | EKG REPORT ---
SEVERITY:- ABNORMAL ECG - SINUS RHYTHM : Confirmed by: Kaitlin Bruce MD 13-Sep-2018 07:50:04
== END 2018-09-12 22:30 | disposition short-term general hospital (02) ==
LOC: ER 09:28
DX: I21.4 Non-ST elevation (NSTEMI) myocardial infarction (principal); D62 Acute posthemorrhagic anemia; R06.00 Dyspnea, unspecified; R09.81 Nasal congestion; E11.22 Type 2 diabetes mellitus with diabetic chronic kidney disease; I12.0 Hypertensive chronic kidney disease with stage 5 chronic kidney disease or end stage renal disease; N18.6 End stage renal disease; Z88.6 Allergy status to analgesic agent
CPT/HCPCS: 93005; 96376; 99291; 99292; 96361; 96375; 96365; 96366; 86900; 86901; 36415; 36430; 86850; 85025; 85610; 85730; 82272; 80048; 84484; 86920; 71046; 78582; 93010; P9016; A9540; A9567; J1644 ×2; A9270 ×3; J2270; J7030; Q9969

== ENCOUNTER → 2018-12-10 | Outpatient (CLI) | payer MEDICARE, MEDICAID ==
[2018-12-10 13:35] LABS: ANION GAP 11 (5-19); BLOOD UREA NITROGEN 47 mg/dL (7-20); CALCIUM 9.9 mg/dL (8.4-10.2); CARBON DIOXIDE 19 mmol/L (22-30); CHLORIDE 111 mmol/L (98-107); GLUCOSE 102 mg/dL (75-110); IRON(TIBC) 59.1 ug/dL (37-170); POTASSIUM 4.7 mmol/L (3.6-5.0); SODIUM 141.2 mmol/L (137-145)
== END ==
LOC: OD 12:14
PROVIDERS: ATTEND Internal Medicine Nephrology
DX: N18.9 Chronic kidney disease, unspecified (principal); D63.1 Anemia in chronic kidney disease
CPT/HCPCS: 36415; 80048; 83540; 83550